=== PATIENT | female | born 1980 | race Caucasian/White ===

== ENCOUNTER 2020-10-29 06:21 | Day surgery (SDC) | payer OTHER ==
[~2020-10-29] VITALS: Ht 165.1 cm; Wt 82.0 kg
[~2020-10-29 06:21] MED LIST: GLYCOPYRROLATE1 MG PO; KLONOPIN1 MG PO; MAXALT10 MG PO; OMEPRAZOLE20 MG PO
--- NOTE | 2020-10-29 08:46 | NUR ---
10/29/20 0846 Jade Farmer 0817 PT TO PACU FROM ENDO ROOM ASLEEP WITH AIRWAY IN PLACE O2 AT 7L VIA MASK.
--- NOTE | 2020-10-30 07:21 | OR ---
[facility] [address] [place], [place] [address] Signed DATE OF OPERATION: 10/29/2020 SURGEON: Thai Green MD PREOPERATIVE DIAGNOSES: 1. Sister with colon cancer at age 40 and of colon cancer at age 42. 2. Father with multiple colonic polyps in his 50s. POSTOPERATIVE DIAGNOSIS: Minimal internal hemorrhoids. PROCEDURE: Colonoscopy without biopsy. ESTIMATED BLOOD LOSS: None. INDICATIONS: Ghanshyam is a 39-year-old female asked to see me for her initial colonoscopy. She explained that her sister was diagnosed with colon cancer at age 40. Unfortunately, she from that colon cancer at age 42. In addition, her father has had multiple colonic polyps removed in his 50s. He follows up regularly for his colonoscopies given the above findings. Of course, there has been a question whether or not the family might have a Al syndrome. We did review that in the office together. Ghanshyam explained to me she has already been to her manager paper. She has no lower GI complaints. She did have chemotherapy at age 23 for non-Hodgkin's lymphoma. I gave her a pamphlet on colonoscopy, and we looked at that together in detail. She understands the nature of the test along with the risks including, but not limited to gas bloating, crampy abdominal pain, bleeding, perforation requiring surgery, and missed diagnosis. We also reviewed the need for IV conscious sedation, namely she takes clonazepam each night. She understands that Versed and fentanyl might not be enough to get her sleep. She had expressed understanding and wished to proceed. PROCEDURE NOTE: Ghanshyam was taken into our endoscopy suite and placed in the left lateral decubitus position. She was given a total of 7 mg of Versed and 100 mcg of fentanyl. Digital rectal exam had been done and this was unremarkable. The adult colonoscope had been introduced and advanced up into the left colon. However, she was wide awake and talking to us. In fact, she was quite directional. She asked her purse was able to reach and pull out her headband and placed a headband on her head. Consequently, we asked an Electronically Signed By: THAI GREEN MD 10/30/20 0721 PATIENT NAME: GHANSHYAM OAKLEY OPERATIVE REPORT DATE OF : 84 REPORT #: [id number] PHYSICIAN: THAI GREEN MD PCP: NILES LOGAN PA-C REPORT IS CONFIDENTIAL AND NOT TO BE RELEASED WITHOUT AUTHORIZATION [facility] [address] [place], [place] [address] Signed anesthesia provider to come and help us with infusion of propofol. With the addition of the propofol in, she was asleep and quite comfortable and relax. The scope was able to pass in quite readily into the cecum itself. Her prep was quite excellent. We could easily see the appendiceal orifice and the ileocecal valve. The scope was slowly withdrawn. We saw no pathology throughout the entire colon or rectum. Upon retroflexion of scope, she had very tiny usual internal hemorrhoid columns. After this, the gas was suctioned out. The colonoscope removed. Ghanshyam tolerated the procedure quite well. RECOMMENDATIONS: Ghanshyam can follow up in 5 years for repeat colonoscopy. She has expressed understanding and agrees with the above plan. Thai Green MD ALB/MODL /[id number] cc: SHARA Zavala MD Copies: NILES LOGAN PA-C, ANDREW L MD ~ Electronically Signed By: THAI GREEN MD 10/30/20 0721 PATIENT NAME: OAKLEYGHANSHYAM JOSE OPERATIVE REPORT DATE OF : 84 REPORT #: [id number] PHYSICIAN: THAI GREEN MD PCP: NILES LOGAN PA-C REPORT IS CONFIDENTIAL AND NOT TO BE RELEASED WITHOUT AUTHORIZATION
== END 2020-10-29 10:00 | disposition home or self-care (01) ==
LOC: OPS 06:21 → DS 06:21 → OPS 06:45
PROVIDERS: ATTEND Colon & Rectal Surgery
PROC: 0DJD8ZZ Inspection of Lower Intestinal Tract, Via Natural or Artificial Opening Endoscopic (ICD-10-PCS; principal; 2020-10-29 06:45)
DX: Z12.11 Encounter for screening for malignant neoplasm of colon (principal); K64.8 Other hemorrhoids; Z80.0 Family history of malignant neoplasm of digestive organs; Z83.71 Family history of colonic polyps; F41.9 Anxiety disorder, unspecified; G43.009 Migraine without aura, not intractable, without status migrainosus; Z85.72 Personal history of non-Hodgkin lymphomas; Z92.21 Personal history of antineoplastic chemotherapy; Z87.19 Personal history of other diseases of the digestive system; K21.00 Gastro-esophageal reflux disease with esophagitis, without bleeding; Z88.0 Allergy status to penicillin; Z88.1 Allergy status to other antibiotic agents; Z91.040 Latex allergy status
CPT/HCPCS: 84703; 99153; G0500; J2250; J2704; J3010; J7121

== ENCOUNTER 2021-02-11 07:00 | Day surgery (SDC) | payer OTHER ==
[~2021-02-11] VITALS: Ht 165.1 cm; Wt 86.4 kg
--- NOTE | 2021-02-11 12:10 | NUR ---
02/11/21 1210 Mirian Ruffin 1204-PATIENT ARRIVED TO PACU ON 6L MASK NONAROUSABLE RR EVEN. ORAL AIRWAY IN PLACE. 3 LAP SITES TO ABDOMEN STERI STRIPS WITH BANDAIDS CDI. CENTENO CATHETER DRAINING YELLOW URINE. IVF INFUSING. SR.
--- NOTE | 2021-02-11 12:52 | NUR ---
PT IS BACK TO DS FROM PACU. CALL LIGHT WITHIN REACH. WATER ON BEDSIDE TABLE. DAUGHTER IS AT THE BEDSIDE. NO ADDITIONAL NEEDS.
--- NOTE | 2021-02-11 14:03 | NUR ---
PT IS BACK TO HER BASELINE, SHE IS REQUESTING SOMETHING FOR PAIN. CENTENO IS DC'D WITH 10MLS OF NS PULLED FROM BALLOON. 900MLS OF NEON YELLOW URINE IN BAG. CALL LIGHT WITHIN REACH. TOLERATING PUDDING AND LIQUID. NO ADDITIONAL NEEDS.
--- NOTE | 2021-02-13 16:55 | PATH ---
[facility] [address] [place], [place] [address] Signed SPECIMEN(S): A ENDOMETRIOSIS OF OVARIAN FOSSA SPECIMEN SOURCE: A. ENDOMETRIOSIS OF OVARIAN FOSSA CLINICAL HISTORY: Dysmenorrhea, interstitial cystitis. DX: Lap with possible excision of endometriosis, cyst. FINAL PATHOLOGIC DIAGNOSIS: Endometriosis of ovarian fossa, biopsy: - Benign soft tissue fragments containing a bland glandular inclusion suspicious for endometriosis. JVR:cml:C2NR MICROSCOPIC EXAMINATION: Histologic sections of all submitted blocks are examined by light microscopy. These findings, together with the gross examination, support the pathologic diagnosis. GROSS DESCRIPTION: The specimen, labeled "AB, endometriosis of ovarian fossa," is received in formalin and consists of one piece of irregular shaped, pink-alanis fibromembranous and adipose tissue that measures 2.0 x 1.5 x 0.1 cm. Sectioning through the specimen is grossly unremarkable. Specimen is entirely submitted in cassette (A1). JS (under the direct supervision of a pathologist) The Gross Description was prepared using a voice recognition system. The report was reviewed for accuracy; however, sound-alike word errors, addition and/or deletions may occur. If there is any question about this report, please contact Client Services. PERFORMING LABORATORY: The technical component was performed by [facility], [address] [place] [id number] (Tax Services Professional: Vannesa Rueda MD; CLIA# [id number]). Professional interpretation was performed by [facility], [facility], [address] [place] [address], [place] [address]. Diagnostician: Rj Rashid MD Pathologist PATIENT NAME: GHANSHYAM OAKLEY PATHOLOGY DATE OF : 84 REPORT #: [id number] PHYSICIAN: SAMI PATHOLOGY PCP: NILES LOGAN PA-C REPORT IS CONFIDENTIAL AND NOT TO BE RELEASED WITHOUT AUTHORIZATION [address] [place], [place] [address] Signed Electronically Signed 02/13/2021 Copies: ~ PATIENT NAME: GHANSHYAM OAKLEY PATHOLOGY DATE OF : 84 REPORT #: [id number] PHYSICIAN: SAMI PATHOLOGY PCP: NILES LOGAN PA-C REPORT IS CONFIDENTIAL AND NOT TO BE RELEASED WITHOUT AUTHORIZATION
--- NOTE | 2021-02-27 22:21 | OR ---
[facility] [address] [facility] [place], [place] [address] Signed DATE OF OPERATION: 02/11/2021 SURGEON: Sara Tarango DO PREOPERATIVE DIAGNOSES: 1. Chronic pelvic pain. 2. Dysmenorrhea. POSTOPERATIVE DIAGNOSES: 1. Chronic pelvic pain. 2. Dysmenorrhea. 3. Endometriosis of the pelvic peritoneum. 4. Ukrr-Pvvz-Gbdvdw. PROCEDURES PERFORMED: 1. Laparoscopic excision of endometriosis. 2. Cystoscopy. RETAIL DISTRICT MANAGER: Aroldo Rondon MD COMPLICATIONS: None. ESTIMATED BLOOD LOSS: 20 mL. FINDINGS: Normal external genitalia with normal clitoris, urethral meatus, bilateral [place]'s, and Bartholin's. Normal-appearing vagina and cervix. On laparoscopy, Sniz-Oirr-Kndpwh. Normal bilateral fallopian tubes and ovaries. Normal uterus. In the right ovarian fossa, there is a small peritoneal lesion consistent with endometriosis with a white puckered lesion that was excised in total. No other endometrial implants were noted and no deep infiltrating endometriosis. All gross endometrial lesions were excised. On cystoscopy, normal appearing bladder with normal compliance. No Hunner's ulcers, significant trabeculations, or significant petechial hemorrhage was noted. Bladder capacity was approximately 650 mL. There was a moderate amount of metaplasia of the trigone. Bilateral ureteral jets were noted. Electronically Signed By: SARA TARANGO DO 02/27/212220 PATIENT NAME: GHANSHYAM OAKLEY OPERATIVE REPORT DATE OF : 84 REPORT #: [id number] PHYSICIAN: SARA TARANGO DO PCP: NILES LOGAN PA-C REPORT IS CONFIDENTIAL AND NOT TO BE RELEASED WITHOUT AUTHORIZATION [facility] [address] [place], [place] [address] Signed INDICATIONS: Ms. Oakley is a pleasant 40-year-old white female with a history of worsening dysmenorrhea and symptoms possibly consistent with interstitial cystitis. The patient has failed conservative therapy and wishes to proceed with diagnostic laparoscopy. Also recommended cystoscopy with possible hydrodistention. Risks, benefits, and alternatives were discussed in detail. The patient understands, and wishes to proceed with the procedure. TECHNIQUE: The patient was taken to the operating room where a time-out was performed to confirm correct patient, correct procedure. General anesthesia was adequately established and the patient was prepped and draped in dorsal lithotomy position with her feet in Yellofin stirrups. ICPs were on running and no preoperative heparin or antibiotics were indicated. A Benson catheter was inserted. A weighted speculum was placed in the vagina and the anterior lip of the cervix was grasped with an Allis clamp. A MySongToYou uterine manipulator was placed and attention was turned to laparoscopy. 0.25% Marcaine with epinephrine was applied to the base of the umbilicus. A stab incision approximately 5 cm in diameter was performed with an 11 blade and a 5 mm trocar was placed under direct visualization without complication. Survey of the abdomen and pelvis was performed. A 5 mm assist port was placed in both the right and left lower quadrants bilaterally under direct visualization without complication. 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 Otherwise, normal bilateral fallopian tubes and ovaries and normal uterus. Detailed exam of the pelvic peritoneum was performed. Subtle findings are consistent with endometriosis in the right ovarian fossa were identified but no other endometrial lesions were noted in the pelvis. A small white puckered lesion was noted in the right ovarian fossa just lateral to the ureter. Decision was made to proceed with excisional procedure. The peritoneum was elevated and nicked with surgical caridad. The peritoneum was then undermined bluntly using surgical caridad and laparoscopic Kittner device. All retroperitoneal tissue was usually mobilized well away from the peritoneum. The entire course of the ureter was carefully examined prior to opening the peritoneum and again once retroperitoneal space was developed, the course of the ureter was followed cephalad and caudad to the incisional site. The peritoneum was excised using surgical caridad. A small amount of oozing was noted at the peritoneal edge and this was made hemostatic using monopolar cautery with a fenestrated small laparoscopic grasper. The biopsy bed was somewhat raw and a small amount of oozing was noted. This was made hemostatic with judicious use of Bovie electrocautery and Tisseel. Excellent hemostasis was appreciated and again no other endometrial implants or significant scarring was noted in the pelvis other than previously noted Ismael-Bobby Cory. Pneumoperitoneum was reduced. Trocars were removed after ensuring all abdominal air was released. Trocar sites were repaired using 4-0 Monocryl in a Electronically Signed By: SARA TARANGO DO 02/27/21 2221 PATIENT NAME: GHANSHYAM OAKLEY OPERATIVE REPORT DATE OF : 84 REPORT #: [id number] PHYSICIAN: SARA TARANGO DO PCP: NILES LOGAN PA-C REPORT IS CONFIDENTIAL AND NOT TO BE RELEASED WITHOUT AUTHORIZATION [address] [address] Signed subcuticular stitch. Attention was then turned to the cystoscopy. Benson catheter was removed and an operative 70 degree cystoscope was placed in the urethral meatus and advanced under direct visualization to the bladder. The bladder was filled with saline and normal bladder compliance was noted. No Hunner's ulcerations, glomerulations or trabeculations were noted. In the trigone, there was some metaplasia noted. The bladder was filled to capacity quickly and the bladder was drained. This was measured at 650 mL. The bladder was refilled and was evaluated. Again, no significant petechial hemorrhage, trabeculations, or other abnormalities were noted. Bilateral ureteral jets were appreciated. The bladder was drained. Benson catheter was reinserted and the patient was taken to PACU in good and stable condition. Sponge and instrument counts were correct x2 at the end of the procedure. Dr. Beckman was present and participated in all portions of procedure. Sara Tarango DO JDW/MODL /[id number] Copies: ~ Electronically Signed By: SARA TARANGO DO 02/27/21 2221 PATIENT NAME: GHANSHYAM OAKLEY OPERATIVE REPORT DATE OF : 84 REPORT #: [id number] PHYSICIAN: SARA TARANGO DO PCP: NILES LOGAN PA-C REPORT IS CONFIDENTIAL AND NOT TO BE RELEASED WITHOUT AUTHORIZATION
== END 2021-02-11 14:45 | disposition home or self-care (01) ==
LOC: DS 07:00
PROVIDERS: ATTEND Obstetrics & Gynecology
PROC: 0UB04ZX Excision of Right Ovary, Percutaneous Endoscopic Approach, Diagnostic (ICD-10-PCS; principal; 2021-02-11 08:30)
DX: N80.3 Endometriosis of pelvic peritoneum (principal); N94.6 Dysmenorrhea, unspecified; N30.10 Interstitial cystitis (chronic) without hematuria; Z91.040 Latex allergy status
CPT/HCPCS: 00840; J0330; J1100; J1885; J2250; J2405; J2704; J2765; J3010; J7121

== ENCOUNTER 2022-05-20 06:00 | Day surgery (SDC) | payer OTHER ==
[~2022-05-20] VITALS: Ht 165.1 cm; Wt 71.4 kg
[~2022-05-20 06:00] MED LIST changes: +MAG-OXIDE200 MG PO; +[UNRECOGNIZED DRUG - REMARK] PO
--- NOTE | 2022-05-20 07:50 | NUR ---
05/20/22 0750 Zoila Villanueva PT ARRIVES TO PACU UNRESPONSIVE TO VERBAL STIMULI. RESPERATIONS ARE UNLABORED AND REGULAR. O2 SATURATION IS 99% ON 2L OF O2.
--- NOTE | 2022-05-20 07:51 | NUR ---
PT ALERT, ORIENTED AND LISTEN TO HER EARBUDS. RM DARKENED, TV OFF PT HAS HAD EGD BEFORE. ALL QUESTIONS ASKED ANSWERED. GAVE BLESSING, WILL FOLLOW
--- NOTE | 2022-05-20 09:32 | OR ---
[facility] [address] [place], [place] [address] Signed DATE OF OPERATION: 05/20/2022 SURGEON: Thai Green MD PREOPERATIVE DIAGNOSES: 1. Gastroesophageal reflux disease. 2. History of esophageal dysphagia, now resolved after dilation. 3. Schatzki's ring dilated to 52-Moroccan. 4. Nausea for greater than or equal to four months. 5. Daily marijuana use. POSTOPERATIVE DIAGNOSES: 1. Small hiatal hernia. 2. GE junction at 33 cm. 3. Mild diffuse gastritis. PROCEDURES: EGD with CLOtest and biopsies of the duodenum, pyloric bulb, antrum and GE junction. ESTIMATED BLOOD LOSS: None. INDICATIONS: Ghanshyam is a 41-year-old female, asked to see me for followup upper endoscopy. She had undergone upper endoscopy in [address] Aroldo Benavides in [place], [place]. She had a history of acid reflux and esophageal dysphagia. He dilated her Schatzki's ring up to 52-Moroccan. She said the esophageal dysphagia is now resolved. There were no biopsies. She had an ultrasound of the upper abdomen at the same time and that was negative. 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 I actually helped her with a colonoscopy in October 2020. We know that she has anxiety and depression and generalized hyperhidrosis. She also had non-Hodgkin's lymphoma back in 2003 and 2005 requiring chemotherapy. She is known to have chronic low back pain as well as a sister who was diagnosed with colon cancer at age 40 and at age 42 from the colon cancer. Her father also has colonic polyps. She has been using clonazepam in the evenings before going to bed. She is also using some marijuana on a daily basis. She has been on omeprazole as well. Nevertheless, she is still having this issue of nausea over the last four months or so. She does not attribute it to her marijuana use. In the office, I had given her a pamphlet on upper endoscopy. She recalls the nature of that test. There is risk including, but not limited to gas bloating, crampy abdominal pain, bleeding, perforation requiring surgery, and missed Electronically Signed By: THAI GREEN MD 05/20/22 0932 PATIENT NAME: GHANSHYAM OAKLEY OPERATIVE REPORT DATE OF : 84 REPORT #: [id number] PHYSICIAN: THAI GREEN MD PCP: SABIHA TRUONG PA-C REPORT IS CONFIDENTIAL AND NOT TO BE RELEASED WITHOUT AUTHORIZATION [facility] [address] [place], [place] [address] Signed diagnosis. She had failed Versed and fentanyl for her endoscopy and we had to have an anesthesia provider come in and add propofol. Consequently, we asked for monitored anesthesia care on this occasion. That proved to be a fisher decision. She actually took quite a bit of propofol and other medications. She had expressed understanding and wished to proceed. PROCEDURE NOTE: Ghanshyam was taken into our endoscopy suite and placed in the supine semi-recumbent position. The posterior oropharynx was anesthetized with lidocaine spray. A bite block was utilized for the case. She was given monitored anesthesia care per our nurse manager story to include propofol and other medications. Even then it took a while for the medication to set in. The adult gastroscope had been introduced and advanced out to the third portion of the duodenum without difficulty. We went ahead and took a biopsy of the duodenum for pathologic review. The stomach showed very mild erythematous changes. We went ahead and took a biopsy from the pyloric bulb as well as the antrum. We took an additional biopsy of the antrum for CLOtest. Upon retroflexion of the scope, I can see just a small hiatal hernia. The scope was withdrawn up through the area of the GE junction, which was compliant without stricture. We did note she has Schatzki's ring. She had minimal irritation around the Z-line. There was no Shaikh's mucosa. Her Z-line measured 33 cm from the incisors. I would say her hiatal hernia is probably only 2 or 3 cm at most in length. We went ahead and took a biopsy along the edge of the Z-line for pathologic review. The distal, middle and upper esophagus were unremarkable. After this, the gas was suctioned out and the gastroscope removed. Ghanshyam tolerated the procedure quite well. RECOMMENDATIONS: I will see Ghanshyam back in my office in 7 to 14 days to review her results. She might consider going without marijuana for two or three months to see if the nausea will resolve. Thai Green MD ALB/MODL /[id number] cc: Thai Green MD Electronically Signed By: THAI GREEN MD 05/20/22 0932 PATIENT NAME: GHANSHYAM OAKLEY OPERATIVE REPORT DATE OF : 84 REPORT #: [id number] PHYSICIAN: THAI GREEN MD PCP: SABIHA TRUONG PA-C REPORT IS CONFIDENTIAL AND NOT TO BE RELEASED WITHOUT AUTHORIZATION [address] [place], [place] [address] Signed Sabiha Truong PA-C Copies: THAI GREEN MD, CHLOE K PA-C ~ Electronically Signed By: THAI GREEN MD 05/20/22 0932 PATIENT NAME: GHANSHYAM OAKLEY OPERATIVE REPORT DATE OF : 84 REPORT #: [id number] PHYSICIAN: THAI GREEN MD PCP: SABIHA TRUONG PA-C REPORT IS CONFIDENTIAL AND NOT TO BE RELEASED WITHOUT AUTHORIZATION
--- NOTE | 2022-05-25 14:34 | PATH ---
[facility] [address] [place], [place] [address] Signed SPECIMEN(S): A DUODENAL BIOPSY SPECIMEN(S): B ANTRUM/ANTRAL BIOPSY SPECIMEN(S): C GE JUNCTION SPECIMEN SOURCE: A. DUODENAL BIOPSY B. ANTRUM/ANTRAL BIOPSY C. GE JUNCTION CLINICAL HISTORY: Esophagogastroduodenoscopy with biopsy. Nausea, marijuana use, Schatzki's ring, GERD. Postop: Hiatal hernia, mild gastritis. FINAL PATHOLOGIC DIAGNOSIS: A. Duodenal biopsy: - Benign duodenal mucosa, negative for specific diagnostic abnormality. B. Antrum biopsy: - Benign gastric antral-type mucosa with focal slight chronic inflammation. - Negative for evidence of Helicobacter organisms on routine HE stained sections. C. Gastroesophageal junction: - Benign gastroesophageal junction with reactive features and mild chronic inflammation. - Negative for specialized intestinal metaplasia or dysplasia. - Negative for increased esophageal epithelial eosinophils. JVR:sm:C2NR MICROSCOPIC EXAMINATION: Histologic sections of all submitted blocks are examined by light microscopy. These findings, together with the gross examination, support the pathologic diagnosis. GROSS DESCRIPTION: Four specimens are received in three containers, labeled "AB." A. The specimen, labeled "AB, duodenum biopsy," is received in formalin and consists of one alanis soft tissue fragment that measures 0.2 cm in greatest dimension. The specimen is entirely submitted in cassette (A1). B. The specimen, labeled "AB, antrum biopsy," is received in formalin and consists of one alanis soft tissue fragment that measures 0.2 cm in greatest dimension. The specimen is entirely submitted in PATIENT NAME: GHANSHYAM OAKLEY PATHOLOGY DATE OF : 84 REPORT #: [id number] PHYSICIAN: SAMI SALMERON PCP: NILES LOGAN PA-C REPORT IS CONFIDENTIAL AND NOT TO BE RELEASED WITHOUT AUTHORIZATION [facility] [address] [place], [place] [address] Signed cassette (B1). C. The specimen, labeled "AB, GE junction biopsy," is received in formalin and consists of one alanis soft tissue fragment that measures 0.2 cm in greatest dimension. The specimen is entirely submitted in cassette (C1). JS (under the direct supervision of a pathologist) The Gross Description was prepared using a voice recognition system. The report was reviewed for accuracy; however, sound-alike word errors, addition and/or deletions may occur. If there is any question about this report, please contact Client Services. PERFORMING LABORATORY: The technical component was performed by [email or web address], [address] [place] [address] (CLIA# [id number]). Professional interpretation was performed by [email or web address], [address] [place] [id number] (CLIA#: [id number]). Diagnostician: Rj Rashid MD Pathologist Electronically Signed 05/25/2022 Copies: ~ PATIENT NAME: GHANSHYAM OAKLEY PATHOLOGY DATE OF : 84 REPORT #: [id number] PHYSICIAN: SAMI SALMERON PCP: NILES LOGAN PA-C REPORT IS CONFIDENTIAL AND NOT TO BE RELEASED WITHOUT AUTHORIZATION
== END 2022-05-20 08:20 | disposition home or self-care (01) ==
LOC: DS 06:00 → OPS 06:00 → DS 07:30 → OPS 07:30
PROVIDERS: ATTEND Colon & Rectal Surgery
PROC: 0DB68ZX Excision of Stomach, Via Natural or Artificial Opening Endoscopic, Diagnostic (ICD-10-PCS; 2022-05-20)
PROC: 0DB98ZX Excision of Duodenum, Via Natural or Artificial Opening Endoscopic, Diagnostic (ICD-10-PCS; principal; 2022-05-20 07:30)
DX: K29.50 Unspecified chronic gastritis without bleeding (principal); K21.00 Gastro-esophageal reflux disease with esophagitis, without bleeding; K22.2 Esophageal obstruction; K44.9 Diaphragmatic hernia without obstruction or gangrene; F12.90 Cannabis use, unspecified, uncomplicated; Z80.0 Family history of malignant neoplasm of digestive organs; Z88.8 Allergy status to other drugs, medicaments and biological substances; Z88.1 Allergy status to other antibiotic agents; Z91.040 Latex allergy status; Z88.0 Allergy status to penicillin; Z91.048 Other nonmedicinal substance allergy status
CPT/HCPCS: 00731; 36415; 87077; J2001; J2704; J7121